=== PATIENT | female | born 1955 | race Caucasian/White ===

== ENCOUNTER → 2018-12-21 16:43 | Outpatient (CLI) | payer MEDICARE, SELFPAY ==
[2018-12-21 18:00] LABS: Absolute Lymphocyte Count 1.98 X10^3/ul (0.83-4.51); Absolute Neutrophil Count 3.3 X10^3/uL (2.0-7.7); Basophil# 0.04 X10^3/uL; Basophil% 0.7 % (0-1); Eosinophils% 1.7 % (0-5); Hematocrit 38.9 % (37-47); Hemoglobin 12.6 g/dl (12.0-15.0); Lymphocyte # 1.98 X10^3/ul (4.0); Lymphocyte % 33.6 % (19-41); Mean Corp Hgb Conc 32.4 g/gl (32-36); Mean Corpuscular Hgb 30.1 pg (27.0-32.0); Mean Corpuscular Volume 93.1 fL (81-99); Mean Platelet Vol. 10.2 fl (6.2-12.0); Monocyte% 8.5 % (0-10); Neutrophil # 3.27 X10^3/uL (2.7-7.7); Neutrophil % 55.3 % (47-70); Platelet Count 306 K/mm3 (150-450); RBC Distribution Width CV 12.4 % (11.6-14.6); RBC Distribution Width SD 41.3 fl (35.1-43.9); Red Blood Count 4.18 M/mm3 (4.2-5.4); White Blood Count 5.9 K/mm3 (4.4-11.0)
[2018-12-21 18:14] LABS: ALB/GLOB Ratio 1.6 RATIO (0.9-2.4); AST(SGOT) 13 U/L (15-37); Alanine Aminotransfer ALT/SGPT 21 U/L (13-56); Albumin, Serum 4.2 g/dL (3.2-5.0); Alkaline Phosphatase 54 U/L (45-117); Anion Gap 10 (5-15); BUN 14 mg/dL (7-18); BUN/Creat Ratio 24.3 RATIO (10-20); Calcium,Total 9.5 mg/dL (8.5-10.1); Chloride 107 mmol/L (98-107); Creatinine, Serum 0.58 mg/dL (0.55-1.02); EST Glomerular Filtration Rate 112 mL/min (>60); Est Glom Filt Rate - Afr Amer 135 mL/min (>60); Globulin 2.6 g/dL (2.2-4.2); Glucose 81 mg/dL (74-106); Potassium 4.1 mmol/L (3.5-5.1); Protein, Total 6.8 g/dL (6.4-8.2); Sodium Level 142 mmol/L (136-145); Thyroid Stim Hormone (TSH) 0.88 uIU/mL (0.358-3.74)
[2018-12-21 18:27] LABS: POSITIVE COUNT NO; POSITIVE DIFFERENTIAL NO; POSITIVE MORPHOLOGY NO
== END ==
PROVIDERS: Family Provider Family Medicine; PCP Family Medicine; Visit Provider Family Medicine
DX: R42 Dizziness and giddiness (principal); R55 Syncope and collapse
CPT/HCPCS: 36415; 80053; 84443; 85025

== ENCOUNTER → 2019-01-19 06:24 | Outpatient (CLI) | payer MEDICARE, SELFPAY ==
[2019-01-09 09:34] VITALS: BMI 22.4
--- NOTE | 2019-01-19 06:26 | ECHOD_ITS ---
Reason For Study: DYSPNEA Procedure This was a 2D Doppler, Color Flow transthoracic echocardiogram. The exam was of adequate technical quality. Exam performed in department. Left Ventricle Normal LV size. Left ventricular systolic function is normal. The estimated ejection fraction is 60 %. The global longitudinal strain = -21 % (normal). No evidence for diastolic dysfunction. No regional wall motion abnormalities noted. Right Ventricle Normal RV size. Normal systolic function. Atria Normal left atrium. Normal right atrium. Prominent eustachian valve. No doppler evidence for ASD. Mitral Valve There is no mitral annular calcification. Normal mitral valve. Trivial eccentric mitral valve insufficiency. Tricuspid Valve Normal tricuspid valve. Mild tricuspid valve insufficiency. Right ventricular systolic pressure estimated to be 26 mmHg. Aortic Valve Trisinus/trileaflet aortic valve. Normal aortic valve. Pulmonic Valve The pulmonic valve is not well visualized. Great Vessels Normal sized aortic root. Pericardium/Pleural No pericardial effusion. MMode/2D Measurements & Calculations LVIDd: 3.8 cm IVSd: 0.84 cm Ao root diam: 3.0 cm LVIDs: 2.3 cm LVPWd: 0.83 cm RVDd: 3.1 cm FS: 39.7 % LAV(MOD-bp): 33.1 ml LA A4 area: 14.9 cm2 RA A4 area: 12.7 cm2 LAV(MOD-bp) Indexed: 19.3 ml/m2 LAV(MOD-sp2): 26.0 ml LAV(MOD-sp4): 37.7 ml Time Measurements MV dec time: 0.27 sec Doppler Measurements & Calculations MV E max alexandre: 69.6 cm/sec Lat Peak E' Alexandre: 10.4 cm/sec Med Peak E' Alexandre: 7.8 cm/sec MV A max laexandre: 82.6 cm/sec E/E' lat: 6.7 E/E' med: 8.9 MV E/A: 0.84 Ao V2 max: 112.1 cm/sec LV V1 max: 90.3 cm/sec TR max alexandre: 237.1 cm/sec Ao max P.0 mmHg LV V1 max P.3 mmHg TR max P.5 mmHg Interpretation Summary Left ventricular systolic function is normal. The estimated ejection fraction is 60 %. The global longitudinal strain = -21 % (normal). Prominent eustachian valve. Trivial eccentric mitral valve insufficiency. Mild tricuspid valve insufficiency. Right ventricular systolic pressure estimated to be 26 mmHg. No evidence for diastolic dysfunction. Ordering Physician: Nathan Soriano Referring Physician: ZAFAR SMITH Performed By: Pilar Sainz, JAMESCS, RVT
--- NOTE | 2019-01-19 12:34 | STRESSREP ---
Stress Test Report Date: 01-19-19 Procedure: Exercise tolerance test/imaging study Indications: shortness of breath/dyspnea on exertion; palpitations Consent: Per the patient Procedure: The patient exercised on a Amrit protocol for 9 minutes and 30 seconds completing Stage III and 30 seconds of Stage IV achieving a peak heart rate of 173 bpm (111% predicted maximal heart rate) with a peak blood pressure 158/80 mmHg and a peak MET capacity of 10 METs. The baseline ECG demonstrated Normal sinus rhythm . The peak exercise ECG demonstrated somatic/motion artifact with no obvious ECG changes . There were rare PACs during recovery . The functional capacity was considered good . There was no complaint of chest discomfort during exercise or recovery . The examination was discontinued secondary to fatigue . Impression: 1. Technically adequate (percent predicted maximal heart rate greater than 85%) exercise tolerance test 2. Peak exercise ECG with somatic/motion artifact with no obvious ECG changes 3. There were rare PACs during recovery 4. Nuclear images pending Myocardial perfusion imaging study: Technique: The patient was injected with 10.8 mCi of technetium 99m Cardiolite and subsequently rest SPECT Cardiolite nuclear imaging was obtained in the horizontal long, vertical long, and short axis views. The patient exercised on a Amrit protocol for 9 minutes and 30 seconds completing Stage III and 30 seconds of Stage IV achieving a peak heart rate of 173 bpm (111 % predicted maximal heart rate) with a peak blood pressure 158/80 mmHg and a peak MET capacity of 10 METs. The patient was injected with 33.1 mCi of technetium 99m Cardiolite and subsequently stress SPECT Cardiolite nuclear imaging was obtained in the horizontal long, vertical long, and short axis views. A gated Cardiolite study at peak stress was obtained. Interpretation: Rest and stress SPECT Cardiolite nuclear imaging status post realignment, normalization, and attenuation correction, demonstrates a small area of subtle diminished tracer uptake in the mid anterior segments at rest which appear to improve/normalized following stress. There are similar type findings on the resting and stress polar map images. There is an systolic thickening and brightening. . The gated Cardiolite study demonstrates myocardial thickening and inward wall motion. The reported LVEF is 83%. Impression: 1. Rest and stress SPECT Cardiolite nuclear imaging demonstrate resting myocardial perfusion changes which improve/normalized following stress appearing compatible a shifting soft tissue attenuation/artifact with no myocardial perfusion changes considered diagnostic for associated stress induced myocardial ischemia . 2. The gated Cardiolite study reports an LVEF of 83 %. This note was generated with Koffeewareation software. It may contain incorrect words, spelling, and punctuation that were not noted in checking the note before signing.
--- NOTE | 2019-01-19 12:41 | STRESSREP_ITS ---
Stress Test Report Date: 01-19-19 Procedure: Exercise tolerance test/imaging study Indications: shortness of breath/dyspnea on exertion; palpitations Consent: Per the patient Procedure: The patient exercised on a Amrit protocol for 9 minutes and 30 seconds completing Stage III and 30 seconds of Stage IV achieving a peak heart rate of 173 bpm (111% predicted maximal heart rate) with a peak blood pressure 158/80 mmHg and a peak MET capacity of 10 METs. The baseline ECG demonstrated Normal sinus rhythm . The peak exercise ECG demonstrated somatic/motion artifact with no obvious ECG changes . There were rare PACs during recovery . The functional capacity was considered good . There was no complaint of chest discomfort during exercise or recovery . The examination was discontinued secondary to fatigue . Impression: 1. Technically adequate (percent predicted maximal heart rate greater than 85%) exercise tolerance test 2. Peak exercise ECG with somatic/motion artifact with no obvious ECG changes 3. There were rare PACs during recovery 4. Nuclear images pending Myocardial perfusion imaging study: Technique: The patient was injected with 10.8 mCi of technetium 99m Cardiolite and subsequently rest SPECT Cardiolite nuclear imaging was obtained in the horizontal long, vertical long, and short axis views. The patient exercised on a Amrit protocol for 9 minutes and 30 seconds completing Stage III and 30 seconds of Stage IV achieving a peak heart rate of 173 bpm (111 % predicted maximal heart rate) with a peak blood pressure 158/80 mmHg and a peak MET capacity of 10 METs. The patient was injected with 33.1 mCi of technetium 99m Cardiolite and subsequently stress SPECT Cardiolite nuclear imaging was obtained in the horizontal long, vertical long, and short axis views. A gated Cardiolite study at peak stress was obtained. Interpretation: Rest and stress SPECT Cardiolite nuclear imaging status post realignment, norm alization, and attenuation correction, demonstrates a small area of subtle diminished tracer uptake in the mid anterior segments at rest which appear to improve/normalized following stress. There are similar type findings on the resting and stress polar map images. There is an systolic thickening and brightening. . The gated Cardiolite study demonstrates myocardial thickening and inward wall motion. The reported LVEF is 83%. Impression: 1. Rest and stress SPECT Cardiolite nuclear imaging demonstrate resting myocardial perfusion changes which improve/normalized following stress appearing compatible a shifting soft tissue attenuation/artifact with no myocardial perfusion changes considered diagnostic for associated stress induced myocardial ischemia . 2. The gated Cardiolite study reports an LVEF of 83 %. This note was generated with readfyation software. It may contain incorrect words, spelling, and punctuation that were not noted in checking the note before signing.
== END ==
PROVIDERS: Family Provider Family Medicine; PCP Family Medicine; Referring Provider Internal Medicine Cardiovascular Disease; Visit Provider Internal Medicine Cardiovascular Disease
DX: R06.02 Shortness of breath (principal); R00.2 Palpitations
CPT/HCPCS: 78452; 93017; 93306; A9500; A4216

== ENCOUNTER → 2020-10-11 09:51 | Outpatient (CLI) | payer MEDICARE, SELFPAY ==
[2020-10-11 09:51] VITALS: BMI 22.7
--- NOTE | 2020-10-11 10:47 | RAD_ITS ---
STUDY: X-RAY - LUMBAR SPINE REASON FOR EXAM: Female, 64 years old. LBP TECHNIQUE: 4 view(s) of the lumbar spine were obtained. COMPARISON: None FINDINGS: Normal lumbar lordosis. There is no substantial scoliosis. There is a normal alignment of the vertebrae. Normal vertebral bodies and endplates. Minimal L3-L4 disc space height narrowing. Normal remaining lumbar disc space heights. The soft tissue structures are unremarkable. RAD/L/S Spine Min 4 Views IMPRESSION: Minimal L3-L4 disc space height narrowing otherwise normal lumbar spine radiographs. Electronically Signed: Chuy Evans MD at 15:24 EST , Service support ,
== END ==
PROVIDERS: PCP Family Medicine; Referring Provider Family Medicine; Visit Provider Family Medicine
DX: M54.9 Dorsalgia, unspecified (principal)
CPT/HCPCS: 72110

== ENCOUNTER 2022-01-13 10:33 | Outpatient (CLI) | payer MEDICARE, SELFPAY ==
--- NOTE | 2022-01-13 10:38 | BI_ITS ---
MAMMOGRAPHY - BILATERAL SCREENING REASON FOR EXAM: Female, 66 years old. Routine annual screening examination. PERTINENT HISTORY: Non-contributory. TECHNIQUE: Digital bilateral breast jairo (3D mammographic acquisition) in the CC and MLO projections. 2-D mediolateral oblique (MLO) and craniocaudad (CC) views of both breasts were obtained. CAD: Full Field Digital Mammography with Computer Added Detection was performed. COMPARISON: Comparison is made with prior examination dated 01/10/2021. FINDINGS: Breast Composition: The breasts are extremely dense, which lowers the sensitivity of mammography. There are no dominant masses or suspicious calcifications. Densely calcified nodules in the upper lateral aspect of the left breast in keeping with calcified fibroadenomas. No other significant abnormalities are identified. There has been no significant change since the prior study. BI/SCRN MAMM (CAD)W/JAIRO BILAT IMPRESSION: Stable bilateral screening mammogram. Yearly follow-up mammogram recommended. (A) ASSESSMENT CATEGORY: BIRADS Category 2: Benign. A letter regarding these results will be sent to the patient by the facility within 30 days. Approximately 10% of breast cancers are not detected by mammography. A normal mammogram should not delay biopsy of a clinically suspicious abnormality. [id number] Electronically Signed: Francisco Mehta MD at 13:09 EST ,
== END 2022-01-13 23:59 | disposition home or self-care (01) ==
LOC: OPBI 10:35
PROVIDERS: PCP Family Medicine; Referring Provider Family Medicine; Visit Provider Family Medicine
DX: Z12.31 Encounter for screening mammogram for malignant neoplasm of breast (principal)
CPT/HCPCS: 77063; 77067

== ENCOUNTER 2022-11-27 08:00 | Outpatient (RCR) | payer MEDICARE, SELFPAY ==
--- NOTE | 2022-11-20 09:22 | HP.PTEVAL ---
Patient's Visit Information JAGDISH MUSTAFA is a 66 year old F referred to Physical Therapy by Dr. Dora Mireles MD with a diagnosis of LBP L. Date of Evaluation: 11/20/22 Physical Therapist: Jose Khan DPT, OCS, CSCS - Visit Plan Frequency: 1x/Week Duration: 2-4 Weeks Plan: weekly x 2-4 for education on ex adn management of hip pain. Next session, check stretches and ROM from today and give hip stabs for HEP. 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 L LB and posterior hip pain. Started in August. I am a walker and she was doing it less than normal for a couple months and then went to beach and walked more than more normal. Pain in August to 01/22. Saw doctor Oct 29 and was 5/10, currently 2/10 at most and worse in bed. Wakes up painful if sleeps on L side. Is walking again about 4 miles 3-4x/week and now is not as often due to weather. No other regular exercises. Used TM last year. Sleep is waking up but back to sleep quickly. 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 This is normal with her pain but she stands up often. Hobbies include [employer] watching. - Pain L LBP/hip Pain Intensity (Out of 10): 0 Pain Intensity Range: 0, 2 - Objective L hip pain 2/10. Walks normal without antalgia including marching, ec, butt kicks and steps reciprocal without pain. Transfers are I. LB AROM full and pianfree except mild with L SB in L posterior hip. ankle and knee AROM full and symmetrical and painfree. Hip AROM WFL and symmetrical except for end range IR painful on L, slightly limited. reflexes 2/3 patella and achilles B. Sensation WNL to gross light touch B LE. strength in knees and ankles 4/5. hip abductiona nd extension 3+ B, flexion 3+ L and 4- R. + FADDIR L and - RASHAWN, slight + L scour. - Balance/Special Test Scores Oswestry Low Back Score: 6 - Goals Goal 1:: Patient feel 99%better in L hip and walk 3+ miles without pain Goal Time Frame: 4-6 Weeks Goal 2:: Pt I in appropriate HEP to manage condition Goal Time Frame: 4-6 Weeks - Rehabilitation Potential Physical Therapy Diagnosis: Likely L hip arthritis Rehabilitation Potential: Fair - Anticipated Interventions Patient/Client Instruction: Educate patient on: Condition, Plan of Care For the Purpose of:: To decrease pain, To improve muscle performance and motor function, To increase tolerance to activity/condition/position, To improve ability of physical actions for home/community/work/leisure Therapeutic Exercise to Include: Strength training, Flexibilty training, Passive ROM, Active ROM For the Purpose of:: To decrease pain, To improve nutrient delivery to tissue, To improve ability of physical actions for home/community/work/leisure Thank you for the opportunity to evaluate your patient. For Medicare and Medicare HMO plans, please review the plan of care and approve it. It will need to be FAXED BACK to us at [phone] for Medicare purposes. For Medicare only, by signing this I certify the plan of care. Please let me know if there are questions or concerns regarding this plan of care. Physician Signature: Date:
--- NOTE | 2022-11-27 08:32 | HP.PTDCSUM ---
It has been my pleasure to treat JAGDISH MUSTAFA referred by Dr. Dora Mireles MD, with the diagnosis of LBP L for a total of 2 visit(s). Discharge Date: Please see the following information for a summary of their discharge status. Subjective: Exercises so beneficial. Pain level much better. Way down. Does not wish to return after today but willing to keep doing ex and learn more. L LBP/hip Pain Intensity (Out of 10): 0 % Improvement: 80 Objective/Function: Good technique adn focus on ex without pain or problems. Pt wishes to be done with PT due to doing so well and continue on her own. Does not wish to f/u. Goal 1:: Patient feel 99%better in L hip and walk 3+ miles without pain Goal Progress: 80% better Goal 2:: Pt I in appropriate HEP to manage condition Goal Progress: Goal Met Plan: d/c at patient request. If there are questions or concerns regarding this patient's physical therapy, please feel free to call me at [phone]. Thank you for the referral of this patient. Sincerely, Jose Khan, DPT, OCS, CSCS Balance/Gait/Functional tests - Balance/Special Test Scores Oswestry Low Back Score: 3
== END 2022-11-27 19:00 | disposition home or self-care (01) ==
LOC: PT 08:00
PROVIDERS: PCP Family Medicine; Referring Provider Family Medicine; Visit Provider Family Medicine
DX: M54.50 Low back pain, unspecified (principal)
CPT/HCPCS: 97110; 97161

== ENCOUNTER → 2023-03-05 | Outpatient (CLI) | payer MEDICARE, SELFPAY ==
--- NOTE | 2023-03-05 09:58 | BI_ITS ---
MAMMOGRAPHY - BILATERAL SCREENING REASON FOR EXAM: Female, 67 years old. Routine annual screening examination. PERTINENT HISTORY: Non-contributory. History of remote left breast biopsy. TECHNIQUE: Digital bilateral breast jairo (3D mammographic acquisition) in the CC and MLO projections. 2-D mediolateral oblique (MLO) and craniocaudad (CC) views of both breasts were obtained. CAD: Full Field Digital Mammography with Computer Added Detection was performed. COMPARISON: Comparison is made with prior study dated January 13, 2022. FINDINGS: Breast Composition: The breasts are extremely dense, which lowers the sensitivity of mammography. There are no dominant masses or suspicious calcifications. Stable densely calcified nodules in the upper lateral aspect of the left breast. No other significant abnormalities are identified. There has been no significant change since the prior study. BI/SCRN MAMM (CAD)W/JAIRO BILAT IMPRESSION: Stable bilateral screening mammogram. Yearly follow-up mammogram recommended. (A) ASSESSMENT CATEGORY: BIRADS Category 2: Benign. A letter regarding these results will be sent to the patient by the facility within 30 days. Approximately 10% of breast cancers are not detected by mammography. A normal mammogram should not delay biopsy of a clinically suspicious abnormality. [id number] Electronically Signed: Francisco Mehta MD at 11:02 EDT ,
== END | disposition home or self-care (01) ==
LOC: OPBI 09:57
PROVIDERS: PCP Family Medicine; Referring Provider Family Medicine; Visit Provider Family Medicine
DX: Z00.00 Encounter for general adult medical examination without abnormal findings (principal); Z12.31 Encounter for screening mammogram for malignant neoplasm of breast
CPT/HCPCS: 77063; 77067

== ENCOUNTER → 2023-09-22 | Outpatient (CLI) | payer MEDICARE, SELFPAY ==
--- NOTE | 2023-09-22 12:22 | US_ITS ---
STUDY: ULTRASOUND OF THE FEMALE PELVIS - COMPLETE REASON FOR EXAM: Female, 67 years old. pelvic fullness LMP: Unknown. TECHNIQUE: Transabdominal and Transvaginal TECHNICAL QUALITY: Adequate. COMPARISON: None. FINDINGS: The uterus is anteverted and is in a midline position. The uterus measures 5.8 x 3.9 x 2.4 cm. There is a hypoechoic 0.8 x 1.0 x 0.8 cm cervical lesion. The endometrium measures 2 mm in thickness, and is hyperechoic. There is no demonstrated endometrial mass. There is no demonstrated myometrial mass. The myometrium is nonspecifically heterogeneous I.U.D. - The patient does not have an I.U.D. Neither ovary visualized. There is no fluid in the cul-de-sac. The bladder is sonographically normal US/Pelvic w/ Transvaginal IMPRESSION: The uterus is nonspecifically heterogeneous. Normal endometrial thickness at 2 mm. No demonstrated fibroid 1 cm hypoechoic cervical lesion, likely sequela from previous instrumentation Neither ovary visualized, no suspicious solid or cystic mass within the pelvis, no free fluid Electronically Signed: Pedro Hargrove MD at 11:37 EST ,
== END | disposition home or self-care (01) ==
LOC: OPUS 12:17
PROVIDERS: PCP Family Medicine; Referring Provider Family Medicine; Visit Provider Family Medicine
DX: R19.00 Intra-abdominal and pelvic swelling, mass and lump, unspecified site (principal)
CPT/HCPCS: 76830; 76856

== ENCOUNTER 2024-03-14 09:00 | Outpatient (RCR) | payer MEDICARE, SELFPAY ==
--- NOTE | 2023-11-19 13:02 | HP.PTEVAL ---
Patient's Visit Information Visit Information Visit Information: JAGDISH MUSTAFA is a 67 year old F referred to Physical Therapy by EDD Hurley with a diagnosis of UTERINE PROLAPSE AND MIDLINE CYSTOCELE. Date of Evaluation: 11/19/23 Physical Therapist: France Churchill PT, Cert MDT Visit Plan Frequency: 1x/Week Duration: 2-4 Months Plan: PF THERAPY FOR STRENGTHENING, LENGTHENING/RELAXATION AND ENDURANCE TRAINING. HEALTHY BLADDER HABIT EDUCATION. TRAINING IN COORDINATION OF PELVIC FLOOR MUSCULATURE WITH HIP AND CORE (TRANSVERSE ABDOMINUS) MUSCULATURE. CORE STRENGTHENING. LUCÍA LE ROM, STRETCHING AND STRENGTHENING. TRAINING IN ABDOMINAL CAVITY PRESSURE MGMT WITH ADL'S. 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 Disability: NO Present symptoms: IN MY VAGINAL AREA I FEEL LIKE SOMETHING IS STICKING OUT. MODERATE FEELING OF BULGING IN VAGINAL AREA. MILD URINARY LEAKING RELATED TO FEELINGS OF URGENCY AND RELATED TO PHYSICAL ACTIVITY, COUGHING AND SNEEZING. Present since: APRIL 2023 Pain Scale: PATIENT DENIES PAIN Is it getting better, worse or staying the same: GETTING BETTER SINCE EXAM IN SEP 2023 WITH ELSA LOCKWOOD CNP. SHE REPORTS SHE PICKED UP WALKING AGAIN AND SHE ISN'T SURE IF THAT HAS HELPED OR NOT. WALKING AVG OF 2 MILES A DAY. Commenced as a result of: NO APPARENT REASON Symptoms at onset: FEELING OF SOMETHING STICKING OUT. Worse: WHEN CONSTIPATION, MAYBE INACTIVITY Better: WALKING FOR EXERCISE Disturbed sleep: GETTING UP TO URINE ONCE AT NIGHT Previous history/Previous treatment: H/O L HIP PAIN TREATMENTED WITH PHYSICAL THERAPY WITH BENEFIT. NO LONGER HAVING HIP PAIN. Treatment this episode: PT REFERRAL ONLY. OPTIONS FOR SURGERY AND PESSARY WERE DISCUSSED. Coughing/sneezing/straining: POSITIVE FOR URINARY LEAKING - INTERMITTENT Gait: NORMAL How long can you delay the need to urinate: ABOUT 30 MINUTES Prolapse (Falling out feeling): YES Frequency of Urination: ABOUT EVERY 3-4 HOURS Ability to stop urine flow: YES Ability to initiate urine stream: YES Dyspareunia: NO Bowel Incontinence: NO Accidents: NO Unexplained weight loss: NO Imaging: RECENT US OF UTERUS - NORMAL PER PATIENT REPORT. PMH/Recent major surgery: UNREMARKABLE. Objective Objective: THIS PATIENT AMBULATES INDEP'LY INTO PT WITH NO GROSS DEVIATIONS NOTED. NO AD'S AND NO LOB. INDEP TRANSFERS. MILDLY REDUCED LUMBAR LORDOSIS NO RELEVANT LATERAL SHIFT. Sensory deficit: LUCÍA LE LIGHT TOUCH SENSATION IS GROSSLY INTACT AND SYMMETRICAL ROM deficit: LUCÍA LE HIP ER, HIP IR, HIP ADD, HS AND CALF TIGHTNESS. Motor deficit: LUCÍA LE'S GROSSLY 5/5 EXCEPT HIPS GRADED 4/5. PELVIC FLOOR WEAKNESS EVIDENT WITH MANUAL INTERNAL VAGINAL TESTING GRADED 2/5 X 3 SECS X 3 REPS. NO PALPABLE PF TRIGGER POINTS OR HIGH TONE. Dural Signs: NEGATIVE LUCÍA LE'S. Lumbar mvmt loss: flex - MIN ext - MIN R SG - MIN L SG - MIN PATIENT DENIES PAIN WITH LUMBAR ROM TESTING ALL PLANES. Core strength: FAIR Palpation: NO ACUTE PELVIC, HIP OR LUMBAR TENDERNESS. FUNCTIONAL SCREEN: Incontinence Impact Questionnaire Score: 1 Urogenital Distress Inventory Score: 7 Goals Goal 1:: PATIENT WILL DEMONSTRATE/COMMUNICATE 10 CONSISTENT AND CONSECUTIVE 10 SECOND PELVIC FLOOR MUSCLE CONTRACTIONS TO DEMONSTRATE IMPROVED PELVIC FLOOR ENDURANCE. Goal Time Frame: 8-12 Weeks Goal 2:: PATIENT WILL BE ABLE TO REDUCE OR ELIMINATE SYMPTOMS REPORTED ON UROGENITAL DISTRESS INVENTORY QUESTIONNAIRE Goal Time Frame: 8-12 Weeks Goal 3:: PATIENT WILL BE ABLE TO DEMONSTRATE IMPROVED ABDOMINAL/TRUNK AND LE STRENGTH FOR OPTIMAL ORGAN SUPPORT Goal Time Frame: 6-8 Weeks Goal 4:: PATIENT WILL BE ABLE TO MANAGE CHANGES IN INTRAABDOMINAL PRESSURE WITH APPROPRIATE PELVIC FLOOR ACTIVATION. Goal Time Frame: 4-6 Weeks Goal 5:: PATIENT WILL BE INDEP WITH A HEP/HOME INSTRUCTIONS FOR CONTINUED IMPROVEMENT ONCE FORMAL PHYSICAL THERAPY CONCLUDES. Goal Time Frame: 8-12 Weeks Rehabilitation Potential Physical Therapy Diagnosis: PROLAPSE, MIXED STRESS AND URGE INCONTINENCE. CONTRIBUTING FACTORS INCLUDE PELVIC FLOOR WEAKNESS AND DECREASED CORE STABILITY CONTROL Rehabilitation Potential: Good Anticipated Interventions Patient/Client Instruction: Educate patient on: Condition, Plan of Care and Risk Factors For the Purpose of:: To improve self management Therapeutic Exercise to Include: Strength training, Endurance training, Coordination, Postural training, Flexibilty training, Neuromotor development, Relaxation training and Dynamic Lumbar Stabilization For the Purpose of:: To improve muscle performance and motor function, To increase tolerance to activity/condition/position, To improve ability of physical actions for home/community/work/leisure and To increase flexibility/ROM Text: Thank you for the opportunity to evaluate your patient. For Medicare and Medicare HMO plans, please review the plan of care and approve it. It will need to be FAXED BACK to us at [phone] for Medicare purposes. For Medicare only, by signing this I certify the plan of care. Please let me know if there are questions or concerns regarding this plan of care. Physician Signature: Date:
--- NOTE | 2024-03-14 11:31 | HP.PTDCSUM_ITS ---
Discharge Summary D/C summary: It has been my pleasure to treat JAGDISH MUSTAFA referred by EDD Hurley, with the diagnosis of UTERINE PROLAPSE AND MIDLINE CYSTOCELE for a total of 12 visit(s). Discharge Date: 03/14/24 Please see the following information for a summary of their discharge status. Subjective Subjective: I'M JUST SO PLEASED WITH THE IMPROVEMENT THAT I'VE MADE. PATIENT REPORTS SHE HASN'T EVEN BEEN FEELING BULGING WHEN SHE GETS UP TO VOID AT NIGHT. IT'S JUST SO MUCH BETTER. DID FEEL BULGING YESTERDAY MID MORNING WHILE AT WORK FOR ABOUT 45 MINUTES AND IT WENT AWAY ON ITS OWN. STATES SHE HAD NOT DONE HER EX'S FOR TWO DAYS DUE TO A IN THE FAMILY. HAS BEEN VERY BUSY WITH A LOT OF COMPANY AND EVERYTHING INVOLVED WITH THE . Overall Improvement % Improvement: 80 Objective Objective/Function: PATIENT WAS SEEN TODAY FOR RE-ASSESSMENT OF PROGRESS TOWARD THE SET PT GOALS AND THE NEED FOR FURTHER PHYSICAL THERAPY VS READINESS FOR DI SCHARGE. THIS PATIENT HAS RESPONDED REALLY WELL TO PT. ALL PT GOALS HAVE BEEN MET AND SHE IS APPROPRIATE FOR AND AGREEABLE TO DISCHARGE. UPON EXAM TODAY WITH INTERNAL MANUAL VAGINAL TESTING HER PELVIC FLOOR STRENGTH HAS IMPROVED TO 4/5 X 10 SEC X 10. FUNCTIONAL SCREEN: Incontinence Impact Questionnaire Score: 0 Urogenital Distress Inventory Score: 4 Goals Goal 1:: PATIENT WILL DEMONSTRATE/COMMUNICATE 10 CONSISTENT AND CONSECUTIVE 10 SECOND PELVIC FLOOR MUSCLE CONTRACTIONS TO DEMONSTRATE IMPROVED PELVIC FLOOR ENDURANCE. Goal Progress: Goal Met Goal 2:: PATIENT WILL BE ABLE TO REDUCE OR ELIMINATE SYMPTOMS REPORTED ON UROGENITAL DISTRESS INVENTORY QUESTIONNAIRE Goal Progress: Goal Met Goal 3:: PATIENT WILL BE ABLE TO DEMONSTRATE IMPROVED ABDOMINAL/TRUNK AND LE STRENGTH FOR OPTIMAL ORGAN SUPPORT Goal Progress: Goal Met Goal 4:: PATIENT WILL BE ABLE TO MANAGE CHANGES IN INTRAABDOMINAL PRESSURE WITH APPROPRIATE PELVIC FLOOR ACTIVATION. Goal Progress: Goal Met Goal 5:: PATIENT WILL BE INDEP WITH A HEP/HOME INSTRUCTIONS FOR CONTINUED IMPROVEMENT ONCE FORMAL PHYSICAL THERAPY CONCLUDES. Goal Progress: Goal Met Plan Plan: D/C TO INDEP EX. D/C Information d/c sentence: If there are questions or concerns regarding this patient's physical therapy, please feel free to call me at [phone]. Thank you for the referral of this patient. Sincerely, France Churchill, PT, Cert MDT Balance/Gait/Functional tests Improvement % Improvement: 80
== END 2024-03-14 14:13 | disposition home or self-care (01) ==
LOC: PT 09:00
PROVIDERS: PCP Family Medicine; Visit Provider Nurse Practitioner Women's Health
DX: N81.4 Uterovaginal prolapse, unspecified (principal); N81.11 Cystocele, midline
CPT/HCPCS: 97162; 97530

== ENCOUNTER → 2024-04-04 | Outpatient (CLI) | payer MEDICARE, SELFPAY ==
--- NOTE | 2024-04-04 09:15 | BI_ITS ---
MAMMOGRAPHY - BILATERAL SCREENING 3-D TOMOSYNTHESIS REASON FOR EXAM: Female, 68 years old. SCREENING PERTINENT HISTORY: No significant family history. TECHNIQUE: 2-D mammograms and 3-D Tomosynthesis of the breast (s) were performed. CAD was performed. COMPARISON: 03/05/2023 FINDINGS: The breast composition is Extermely dense tissue. Scattered benign calcifications are seen. No dense spiculated masses or suspicious microcalcifications are identified. No architectural distortion is identified. There is no skin thickening or retraction. There has been no significant change since the prior study. No change in a benign coarse calcifications in the upper outer quadrant left breast consistent with degenerated fibroadenomas. BI/SCRN MAMM (CAD)W/JAIRO BILAT IMPRESSION: No mammographic signs of malignancy. Routine yearly mammograms recommended. ASSESSMENT CATEGORY: BIRADS Category 2: Benign. A letter regarding these results will be sent to the patient by the facility within 30 days. FOLLOW UP RECOMMENDATION: Yearly follow up mammogram recommended. (A) Approximately 10% of breast cancers are not detected by mammography. A normal mammogram should not delay biopsy of a clinically suspicious abnormality. Electronically Signed: Kam Garcia MD at 0:00 EDT ,
== END | disposition home or self-care (01) ==
LOC: OPBI 09:15
PROVIDERS: PCP Family Medicine; Referring Provider Family Medicine; Visit Provider Family Medicine
DX: Z12.31 Encounter for screening mammogram for malignant neoplasm of breast (principal)
CPT/HCPCS: 77063; 77067

== ENCOUNTER → 2025-06-19 | Outpatient (CLI) | payer MEDICARE, SELFPAY ==
--- NOTE | 2025-06-19 09:58 | BI_ITS ---
EXAM: SCRN MAMM (CAD)W/JAIRO BILAT DATE: 06/19/2025 CLINICAL HISTORY: F, Age 69 y/o , SCREENING No family history. TECHNIQUE: SCRN MAMM (CAD)W/JAIRO BILAT COMPARISON: Prior exam(s) dated April 05, 2024. FINDINGS: TISSUE DENSITY: The breasts are extremely dense, which lowers the sensitivity of mammography. Bilateral Breast Mammographic Findings: No significant masses, calcifications or other abnormalities are identified. Stable densely calcified nodules in the upper lateral aspect of the right breast in keeping with a calcified fibroadenomas. No suspicious masses, areas of developing architectural distortion, or suspicious calcifications. There has been no significant interval change. BI/SCRN MAMM (CAD)W/JAIRO BILAT IMPRESSION: Stable examination. OVERALL FINAL ASSESSMENT BI-RADS 2: BENIGN RECOMMENDATION: Routine annual follow-up in 1 Year A letter with findings and recommendations will be mailed to the patient. Reading Location: [facility]
== END | disposition home or self-care (01) ==
LOC: OPBI 09:56
DX: Z12.31 Encounter for screening mammogram for malignant neoplasm of breast (principal)
CPT/HCPCS: 77063; 77067